=== PATIENT | male | born 1985 | race Caucasian/White ===

== ENCOUNTER 2018-01-24 16:41 | Emergency (ER) | payer SELFPAY ==
[~2018-01-24] VITALS: Ht 177.8 cm; Wt 97.2 kg
[2018-01-24] MEDS ORDERED: DIAZEPAM 5 MG TABLET PO ONE (17:00)
[2018-01-24] MEDS ORDERED: KETOROLAC 30 MG/1 ML IM ONE (17:00)
[2018-01-24] MEDS ORDERED: KETOROLAC 30 MG/1 ML ONE (17:07)
[2018-01-24] MEDS ORDERED: DIAZEPAM 5 MG TABLET ONE (17:07)
[2018-01-24] MEDS ORDERED: ALBU0.63 NEB (17:35)
[2018-01-24] MEDS ORDERED: [UNRECOGNIZED DRUG - OTHER] (17:36)
[2018-01-24] MEDS ORDERED: LIDODERM 5% PATCH TD ONE (18:00)
[2018-01-24 18:21] VITALS: BP 126/84
[2018-01-24] MEDS ORDERED: HYDROmorphone 2 MG/ML, 1ML ONE (18:22)
[2018-01-24] MEDS ORDERED: HYDROmorphone 1 MG/ML, 1ML IM ONE (18:30)
== END 2018-01-24 19:02 | disposition home or self-care (01) ==
LOC: ED 18:59
DX: S39.012A Strain of muscle, fascia and tendon of lower back, initial encounter (principal); X58.XXXA Exposure to other specified factors, initial encounter; Y93.66 Activity, soccer; Y92.89 Other specified places as the place of occurrence of the external cause; Y99.8 Other external cause status
CPT/HCPCS: 72110; 96372; 99284; J1170; J1885; J7512